=== PATIENT | female | born 1990 | race Asian ===

== ENCOUNTER 2020-05-03 09:25 | Inpatient (IN) | payer BC ==
[2020-05-03 10:47] LABS: BASO % 0.4 % (0-2.0); HEMATOCRIT 37.4 % (32.4-45.2); HEMOGLOBIN 12.7 GM/dL (10.7-15.3); LYMPH % 19.6 % (8-40); MCH 30.6 pg (25.7-33.7); MEAN PLT VOLUME 9.5 fl (7.5-11.1); MONO % 6.4 % (3.8-10.2); NEUT % 72.6 % (42.8-82.8); PLATELET COUNT 144 K/MM3 (134-434); RBC 4.16 M/mm3 (3.60-5.2); RDW 13.8 % (11.6-15.6); WHITE BLOOD COUNT 6.4 K/mm3 (4.0-10.0)
[2020-05-03 11:01] LABS: INR 0.93 (0.83-1.09); PROTHROMBIN TIME (PATIENT) 11.3 SEC (9.7-13.0)
[2020-05-03 11:04] VITALS: BMI 24.0
[2020-05-03 11:04] LABS: ACTIVATED PTT 27.8 SECONDS (25.2-36.5)
[2020-05-03 11:09] LABS: POTASSIUM 3.8 mmol/L (3.5-5.1)
[2020-05-03 11:11] LABS: BLOOD UREA NITROGEN 9.6 mg/dL (7-18)
[2020-05-03 11:14] LABS: CREATININE 0.6 mg/dL (0.55-1.3)
[2020-05-03] MEDS ORDERED: MISOPROSTOL 100 MCG TABLET PV PRN (12:00)
[2020-05-03 12:06] LABS: HIV INTERPRETATION NEGATIVE (NEGATIVE)
[2020-05-03] MEDS: DEXTROSE 5%-LACTATED RINGERS 1,000 ML IV SCH (20:00)
[2020-05-03] MEDS ORDERED: OXYTOCIN 30 UNITS in 0.9% NS 30 UNIT/500 ML INFUS.BAG IVPB SCH (20:30)
[2020-05-03] MEDS ORDERED: OXYTOCIN 30 UNITS in 0.9% NS 30 UNIT/500 ML INFUS.BAG IVPB ONE (20:53)
[2020-05-04] MEDS: DEXTROSE 5%-LACTATED RINGERS 1,000 ML IV SCH (12:30)
[2020-05-04] MEDS ORDERED: MORPHINE SULFATE 2 MG/ML VIAL IVPUSH ONE (16:30)
[2020-05-04] MEDS ORDERED: FENTANYL/BUPIVACAINE/NS/PF - PCEA - 50 ML DISP.SYRIN EP ONE ×2 (16:31→20:59)
[2020-05-04] MEDS ORDERED: PCA PUMP NR ONE (16:31)
[2020-05-04] MEDS ORDERED: NALOXONE HCL 0.4 MG/ML VIAL IVPUSH PRN (16:32)
[2020-05-04] MEDS ORDERED: FENTANYL/BUPIVACAINE/NS/PF - PCEA - 50 ML DISP.SYRIN EP SCH (16:45)
[2020-05-04] MEDS ORDERED: OXYTOCIN 20 UNITS in 0.9% NS 20 UNIT/1,000 ML INFUS.BAG IV ONE (20:12)
[2020-05-04 22:58] LABS: CORD BASE EXCESS -3.3 mmol/L (0-2); CORD HCO3 25.2 mmHg (20-29); CORD PCO2 58.4 mmHg (30-78); CORD pH 7.252 (7.14-7.44)
[2020-05-05] MEDS ORDERED: WITCH HAZEL 50% (TUCKS) 40 PAD/JAR PAD TP PRN (00:10)
[2020-05-05] MEDS ORDERED: ACETAMINOPHEN 325 MG TABLET (FP) PO PRN (00:10)
[2020-05-05] MEDS ORDERED: IBUPROFEN 600 MG TABLET (FP) PO PRN (00:10)
[2020-05-05] MEDS ORDERED: BISACODYL 10 MG SUPP.RECT RC PRN (00:10)
[2020-05-05] MEDS ORDERED: BENZOCAINE 20% 57 GM BOTTLE TP PRN (00:10)
[2020-05-05] MEDS ORDERED: BENZOCAINE 28 GM HEMORRHOIDAL OINTMENT TP PRN (00:10)
[2020-05-05] MEDS: PRENATAL VITAMINS W/ FOLIC ACID TABLET (FP) PO SCH (09:02)
[2020-05-06 09:35] LABS: BASO % 0.2 % (0-2.0); EOS % 1.9 % (0-4.5); HEMATOCRIT 33.5 % (32.4-45.2); HEMOGLOBIN 11.6 GM/dL (10.7-15.3); LYMPH % 21.5 % (8-40); MCHC 34.6 g/dl (32.0-36.0); MEAN CELL VOLUME 89.6 fl (80-96); MEAN PLT VOLUME 9.6 fl (7.5-11.1); MONO % 5.6 % (3.8-10.2); NEUT % 70.8 % (42.8-82.8); PLATELET COUNT 135 K/MM3 (134-434); RBC 3.73 M/mm3 (3.60-5.2); RDW 13.9 % (11.6-15.6); WHITE BLOOD COUNT 9.5 K/mm3 (4.0-10.0)
[2020-05-06] MEDS: PRENATAL VITAMINS W/ FOLIC ACID TABLET (FP) PO SCH (09:37)
[2020-05-06 10:08] VITALS: BP 128/81; PULSE 79; TEMP 97.6
== END 2020-05-06 12:50 | disposition home or self-care (01) | DRG 807 ==
LOC: JLDR 09:25 → J3W 05-05
PROVIDERS: ADMIT Obstetrics & Gynecology Maternal & Fetal Medicine; ATTEND Obstetrics & Gynecology Maternal & Fetal Medicine
PROC: 3E0D7GC Introduction of Other Therapeutic Substance into Mouth and Pharynx, Via Natural or Artificial Opening (ICD-10-PCS; 2020-05-03)
PROC: 3E033VJ Introduction of Other Hormone into Peripheral Vein, Percutaneous Approach (ICD-10-PCS; 2020-05-03)
PROC: 10E0XZZ Delivery of Products of Conception, External Approach (ICD-10-PCS; principal; 2020-05-04)
PROC: 0UQMXZZ Repair Vulva, External Approach (ICD-10-PCS; 2020-05-04)
DX: O9A.12 Malignant neoplasm complicating childbirth (principal); Z37.0 Single live birth; C73 Malignant neoplasm of thyroid gland; O70.0 First degree perineal laceration during delivery; Z3A.37 37 weeks gestation of pregnancy
CPT/HCPCS: 36415; 36600; 59409; 80048; 82803; 85025; 85610; 85730; 86780; 86850; 86900; 86901; 87389; 88307-TC